=== PATIENT | female | born 1990 | race Caucasian/White ===

== ENCOUNTER 2022-10-02 16:24 | Outpatient (CLI) | payer BC, SELFPAY ==
[2022-10-02 19:04] LABS: Cholesterol* 253 mg/dL (90-199)
[2022-10-02 19:05] LABS: Glucose* 92 mg/dL (60-115); HDL Cholesterol* 77 mg/dL (>=50); LDL Cholesterol Calculated 146 mg/dL (<100); Triglycerides* 151 mg/dL (40-149)
== END 2022-10-02 16:25 | disposition home or self-care (01) ==
PROVIDERS: PCP Family Medicine; Visit Provider Registered Nurse
DX: Z01.419 Encounter for gynecological examination (general) (routine) without abnormal findings (principal); F41.9 Anxiety disorder, unspecified; Z13.6 Encounter for screening for cardiovascular disorders; Z13.1 Encounter for screening for diabetes mellitus
CPT/HCPCS: 80061; 82947

== ENCOUNTER 2024-12-26 18:25 | Outpatient (CLI) | payer BC, SELFPAY ==
[2024-12-29 07:11] LABS: HPV Source Cervix; HPV, High Risk by TMA Not Detected
== END 2024-12-26 18:26 | disposition home or self-care (01) ==
PROVIDERS: PCP Family Medicine; Visit Provider Registered Nurse
DX: Z12.4 Encounter for screening for malignant neoplasm of cervix (principal)
CPT/HCPCS: 87624; 87625; 88141; 88142